=== PATIENT | male | born 1940 | race Caucasian/White ===

== ENCOUNTER 2019-11-29 10:04 | Outpatient (CLI) | payer MEDICARE ==
--- NOTE | 2019-11-29 10:33 | ULT ---
RENAL ULTRASOUND HISTORY: Chronic kidney disease COMPARISON: None FINDINGS: Right Kidney: Size: 10.5 x 4.3 x 5.1 Abnormality: Right renal cortical thickness is 1.4 cm. No focal renal lesion or hydronephrosis is dem onstrated. Left Kidney: Size: 10.5 x 4.6 x 4.1 cm. Abnormality: The left renal cortical thickness is 1.5 cm. No focal renal lesion or hydronephrosis is demonstrated. Urinary bladder: Decompressed IMPRESSION: No focal renal lesion or hydronephrosis.
[2019-11-29 14:31] LABS: Hemoglobin 14.7 g/dL (14.0-18.0); Mean Corpuscular HGB CONC 32.8 g/dL (32.0-36.0); Mean Corpuscular Hemoglobin 30.6 pg (27.0-31.0); Mean Corpuscular Volume 93.2 fL (78.0-98.0); Mean Platelet Volume 7.9 fL (7.4-10.4); Platelet Count 281 thou/uL (130-400); RBC Distribution Width 12.1 % (11.5-14.5); Red Blood Cell (RBC) Count 4.82 mill/uL (4.70-6.10); White Blood Cell (WBC) Count 6.3 thou/uL (4.8-10.8)
[2019-11-29 14:44] LABS: Bilirubin Negative (Negative); Blood, Urine Trace (Negative); Clarity Clear (Clear); Glucose, Urine (Dipstick) Normal (Negative); Leukocyte Negative Leu/uL (Negative); Nitrite Negative (Negative); Protein, Urine (Dipstick) Negative (Neg-Trace); Urobilinogen Normal mg/dL (Less than 2)
[2019-11-29 14:46] LABS: Anion Gap 10 mmol/L (10-20); BUN (Urea Nitrogen) 26 mg/dL (8.4-25.7); Calc. Creatinine Clearance 0 mL/min (70-130); Calcium 9.7 mg/dL (7.8-10.44); Carbon Dioxide 30 mmol/L (23-31); Chloride 105 mmol/L (98-107); Estimated GFR-MDRD 51; Glucose 118 mg/dL (83-110); Phosphorus 3.1 mg/dL (2.3-4.7); Potassium 3.7 mmol/L (3.5-5.1); Sodium 141 mmol/L (136-145)
[2019-11-29 15:02] LABS: Protein, Urine Random Quant Less than 10 mg/dL (1-14)
[2019-11-29 15:21] LABS: Follow-up Chemistry Comp? YES; Follow-up Result - Chemistry REPORT FAXED
[2019-11-30 10:37] LABS: ANA Symphony (Qualitative) Negative (Negative); ANA Symphony (Quantitative) 0.3 Ratio (< 0.7 Negative); dsDNA IgG Antibody 1.4 IU/mL (<10 Negative)
[2019-11-30 13:01] LABS: Follow-up Ref Lab Comp? YES; Follow-up Result - Ref Lab REPORT FAXED
== END 2019-11-29 10:05 | disposition home or self-care (01) ==
LOC: SCSULT 10:04
PROVIDERS: ATTEND Internal Medicine Nephrology
DX: I12.9 Hypertensive chronic kidney disease with stage 1 through stage 4 chronic kidney disease, or unspecified chronic kidney disease (principal); N18.3 Chronic kidney disease, stage 3 (moderate); R60.9 Edema, unspecified
CPT/HCPCS: 76770; 80048; 81003; 82306; 82570; 83970; 84100; 84156; 85027; 86038; 86225